=== PATIENT | female | born 1990 | race Caucasian/White ===

== ENCOUNTER 2021-12-27 10:47 | Outpatient (CLI) | payer BC | END 2021-12-27 10:48 | disposition home or self-care (01) | LOC: CSHLAB 10:47 | PROVIDERS: ATTEND Student in an Organized Health Care Education/Training Program | DX: Z20.822 Contact with and (suspected) exposure to COVID-19 (principal) | CPT/HCPCS: U0003; U0005 ==

== ENCOUNTER 2021-12-31 05:23 | Inpatient (IN) | payer BC ==
[2021-12-31] MEDS ORDERED: Ondansetron PF 4 MG/2 ML Vial IVP PRN ×3 (05:33→11:07)
[2021-12-31] MEDS ORDERED: Bicitra 30 ML UDCUP PO PRN (05:33)
[2021-12-31] MEDS ORDERED: Promethazine HCl 25 MG/ML VIAL IM PRN ×2 (05:33→07:05)
[2021-12-31] MEDS ORDERED: hydrALAZINE 20 MG/ML VIAL SLOW IVP PRN ×2 (05:33→11:07)
[2021-12-31] MEDS ORDERED: Famotidine/PF 20 mg/2ml Vial SLOW IVP PRN (05:33)
[2021-12-31 05:35] VITALS: BMI 37.9
[2021-12-31] MEDS ORDERED: CEFAZOLIN 2 GM in Sodium Chloride 0.9% 100 ML IVPB SCH (05:45)
[2021-12-31] MEDS: Lactated Ringer's 1,000 ML IV SCH ×3 (06:15→10:45)
[2021-12-31 06:23] LABS: Hemoglobin 11.4 g/dL (12.0-15.5); Mean Corpuscular HGB CONC 33.5 g/dL (32.0-36.0); Mean Corpuscular Hemoglobin 27.5 pg (27.0-33.0); Mean Corpuscular Volume 82.1 fl (81.6-98.3); Mean Platelet Volume 10.5 fl (7.4-10.4); Platelet Count 193 10x3/uL (150-450); RBC Distribution Width 13.1 % (11.5-14.5); Red Blood Cell (RBC) Count 4.14 10x6/uL (3.90-5.03)
[2021-12-31] MEDS ORDERED: Meperidine HCl/PF 25 MG/ML VIAL SLOW IVP PRN (07:05)
[2021-12-31] MEDS ORDERED: Ondansetron HCl/PF 4 MG/2 ML Vial IVP PRN (07:05)
[2021-12-31] MEDS ORDERED: Naloxone HCl 0.4 mg/ml Vial IVP PRN ×2 (07:05)
[2021-12-31] MEDS ORDERED: Naloxone HCl 0.4 mg/ml Vial IV PRN (07:05)
[2021-12-31] MEDS ORDERED: Moisturizing Cream (Eucerin) 113 GM JAR TOP PRN (07:05)
[2021-12-31] MEDS ORDERED: diphenhydrAMINE 50 MG/ML VIAL IVP PRN (07:05)
[2021-12-31] MEDS ORDERED: Fentanyl 100 MCG/2 ML VIAL SLOW IVP PRN (07:05)
[2021-12-31] MEDS ORDERED: Promethazine HCl 25 MG SUPP PR PRN (07:05)
[2021-12-31] MEDS ORDERED: Ketorolac Tromethamine 30 MG/ML VIAL IVP PRN (07:05)
[2021-12-31] MEDS ORDERED: Communication Order-Pharmacy FS SCH (07:15)
[2021-12-31] MEDS ORDERED: Morphine PF 10 MG/10 ML VIAL ONE (07:15)
[2021-12-31] MEDS ORDERED: Ketorolac Tromethamine 30 MG/ML VIAL IVP SCH (07:15)
[2021-12-31] MEDS ORDERED: Fentanyl 100 MCG/2 ML VIAL ONE (07:15)
[2021-12-31] MEDS ORDERED: Ondansetron PF 4 MG/2 ML Vial ONE (07:16)
[2021-12-31] MEDS ORDERED: PHENYLEPHRINE-NS 100 MCG/ML 10 ML SYRINGE ONE ×4 (07:16→08:11)
[2021-12-31] MEDS ORDERED: Oxytocin 10 UNITS/ML VIAL ONE ×2 (07:16→08:08)
[2021-12-31] MEDS ORDERED: Dexamethasone 4 mg/ml Vial ONE (07:16)
[2021-12-31] MEDS ORDERED: Ketorolac Tromethamine 30 MG/ML VIAL ONE (07:37)
[2021-12-31] MEDS ORDERED: ePHEDrine Sulfate 50 MG/10 ML VIAL ONE (08:02)
[2021-12-31 08:10] LABS: Hep B Surf Ag Non-Reactive S/CO (NonReactive)
[2021-12-31 08:15] LABS: Syphilis Antibody Nonreactive (Nonreactive); Syphilis Antibody Index 0.03 S/CO (<1.00 Non-Reactive)
[2021-12-31] MEDS ORDERED: Phenylephrine 40 MG/NS 250 ML 250 ML ONE (08:19)
[2021-12-31 08:27] LABS: HBSAg Index 0.17 S/CO (0-0.99)
[2021-12-31] MEDS ORDERED: diphenhydrAMINE 25 MG CAP PO PRN (11:07)
[2021-12-31] MEDS ORDERED: Lanolin Ointment 7 GM TUBE TOP PRN (11:07)
[2021-12-31] MEDS ORDERED: Acetaminophen 325 MG TAB PO PRN (11:07)
[2021-12-31] MEDS ORDERED: Bisacodyl 10 MG SUPP PR PRN (11:07)
[2021-12-31] MEDS ORDERED: Boostrix 0.5 ML (Tdap) VIAL IM ONE (11:07)
[2021-12-31] MEDS ORDERED: Dextromethorphan Polistirex 30 MG/5 ML (89 ML BOTTLE) PO PRN ×2 (11:07→20:00)
[2021-12-31] MEDS ORDERED: Simethicone Chewable 80 MG TAB PO PRN (11:07)
[2021-12-31] MEDS ORDERED: Docusate 100 MG CAP PO SCH (11:15)
[2021-12-31] MEDS: Ibuprofen 800 MG TAB PO SCH ×2 (11:28→21:53)
[2021-12-31] MEDS ORDERED: Ferrous Sulfate 325 MG TAB PO SCH (11:30)
[2021-12-31] MEDS ORDERED: Prenatal Vitamin 1 TAB PO SCH (11:30)
[2021-12-31] MEDS ORDERED: HYDROcodone/Acetaminophen 5/325 mg Tablet PO PRN (19:30)
[2021-12-31] MEDS: Docusate 100 MG CAP PO SCH (21:53)
[2022-01-01 05:13] LABS: Hemoglobin 9.3 g/dL (12.0-15.5); Mean Corpuscular HGB CONC 34.1 g/dL (32.0-36.0); Mean Corpuscular Hemoglobin 27.6 pg (27.0-33.0); Platelet Count 161 10x3/uL (150-450); RBC Distribution Width 13.3 % (11.5-14.5); Red Blood Cell (RBC) Count 3.37 10x6/uL (3.90-5.03); White Blood Cell (WBC) Count 10.3 10x3/uL (3.5-10.5)
[2022-01-01] MEDS: Ibuprofen 800 MG TAB PO SCH ×3 (05:42→21:00)
[2022-01-01] MEDS: Ferrous Sulfate 325 MG TAB PO SCH ×3 (07:05→21:00)
[2022-01-01] MEDS: Docusate 100 MG CAP PO SCH ×2 (09:01→21:00)
[2022-01-01] MEDS: HYDROcodone/Acetaminophen 5/325 mg Tablet PO PRN ×3 (09:02→18:04)
[2022-01-01] MEDS: Prenatal Vitamin 1 TAB PO SCH (09:02)
[2022-01-02] MEDS: HYDROcodone/Acetaminophen 5/325 mg Tablet PO PRN (00:49)
[2022-01-02] MEDS: Ibuprofen 800 MG TAB PO SCH ×4 (00:52→07:37)
[2022-01-02 07:34] VITALS: BP 118/64; TEMP 98.3
[2022-01-02] MEDS: Prenatal Vitamin 1 TAB PO SCH (08:18)
[2022-01-02] MEDS: Ferrous Sulfate 325 MG TAB PO SCH (08:18)
[2022-01-02] MEDS: Docusate 100 MG CAP PO SCH (08:18)
== END 2022-01-02 13:30 | disposition home or self-care (01) | DRG 787 ==
LOC: CSHLD 05:23 → CSHPP 11:05
PROVIDERS: ADMIT Student in an Organized Health Care Education/Training Program; ATTEND Student in an Organized Health Care Education/Training Program
PROC: 10D00Z1 Extraction of Products of Conception, Low, Open Approach (ICD-10-PCS; principal; 2021-12-31)
PROC: 3E0334Z Introduction of Serum, Toxoid and Vaccine into Peripheral Vein, Percutaneous Approach (ICD-10-PCS; 2021-12-31)
DX: O34.211 Maternal care for low transverse scar from previous cesarean delivery (principal); D62 Acute posthemorrhagic anemia; Z20.822 Contact with and (suspected) exposure to COVID-19; Z3A.37 37 weeks gestation of pregnancy; Z37.0 Single live birth; Z88.1 Allergy status to other antibiotic agents; O26.893 Other specified pregnancy related conditions, third trimester; Z67.41 Type O blood, Rh negative; N73.6 Female pelvic peritoneal adhesions (postinfective); O99.892 Other specified diseases and conditions complicating childbirth; O90.81 Anemia of the puerperium
CPT/HCPCS: 36415; 51702; 85027; 85461; 86780; 86850; 86870; 86900; 86901; 87340; 90384; 96372; J0690; J1100; J1885; J2274; J2405; J2590; J3010; J3490; J7120; S0028

== ENCOUNTER 2025-06-06 12:10 | Inpatient (IN) | payer BC ==
[2025-06-03 15:47] LABS: Hematocrit 36.8 % (34.9-44.5); Hemoglobin 12.6 g/dL (12.0-15.5); Platelet Count 184 10x3/uL (150-450)
[2025-06-03 16:26] LABS: Syphilis Antibody Index 0.08 S/CO (<1.00 Non-Reactive)
[2025-06-03 16:27] LABS: Hep B Surf Ag Non-Reactive S/CO (NonReactive)
[2025-06-06] MEDS ORDERED: Ondansetron PF 4 MG/2 ML Vial IVP PRN ×4 (12:12→17:35)
[2025-06-06] MEDS ORDERED: Bicitra 30 ML UDCUP PO PRN (12:12)
[2025-06-06] MEDS ORDERED: Diphenoxylate HCl/Atropine Tablet PO PRN (12:12)
[2025-06-06] MEDS ORDERED: Famotidine/PF 20 mg/2ml Vial SLOW IVP PRN (12:12)
[2025-06-06] MEDS ORDERED: Methylergonovine 0.2 MG/ML VIAL IM PRN (12:12)
[2025-06-06] MEDS ORDERED: hydrALAZINE 20 MG/ML VIAL SLOW IVP PRN ×2 (12:12→17:35)
[2025-06-06] MEDS ORDERED: Carboprost 250 MCG/ML AMP IM PRN (12:12)
[2025-06-06] MEDS ORDERED: Oxytocin 30 units/NS 500 ML 500 ML IV SCH (12:15)
[2025-06-06 12:25] VITALS: BMI 38.7
[2025-06-06] MEDS ORDERED: HYDROmorphone 0.5 MG/0.5 ML SYRINGE SLOW IVP PRN (15:26)
[2025-06-06] MEDS ORDERED: diphenhydrAMINE 50 MG/ML VIAL IVP PRN (15:26)
[2025-06-06] MEDS ORDERED: Meperidine HCl/PF 25 MG (1 mL) VIAL SLOW IVP PRN (15:26)
[2025-06-06] MEDS ORDERED: Communication Order-Pharmacy FS SCH (15:30)
[2025-06-06] MEDS ORDERED: Ketorolac Tromethamine 30 MG (1 mL) VIAL IVP SCH (15:30)
[2025-06-06] MEDS ORDERED: Bisacodyl 10 MG SUPP PR PRN (17:35)
[2025-06-06] MEDS ORDERED: diphenhydrAMINE 25 MG CAP PO PRN (17:35)
[2025-06-06] MEDS ORDERED: Acetaminophen 325 MG TAB PO PRN (17:35)
[2025-06-06] MEDS ORDERED: Lanolin Ointment 7 GM TUBE TOP PRN (17:35)
[2025-06-06] MEDS: Ondansetron PF 4 MG/2 ML Vial ONE (17:54)
[2025-06-06] MEDS: Oxytocin 10 UNITS/ML VIAL ONE (17:54)
[2025-06-06] MEDS: Tranexamic Acid 1,000 MG/10 ML VIAL ONE (17:54)
[2025-06-06] MEDS: PHENYLEPHRINE-NS 100 MCG/ML 10 ML SYRINGE ONE (17:55)
[2025-06-06] MEDS: Ferrous Sulfate 325 MG TAB PO SCH (20:50)
[2025-06-06] MEDS: Ketorolac Tromethamine 30 MG (1 mL) VIAL IVP PRN (20:52)
[2025-06-07] MEDS ORDERED: HYDROcodone/Acetaminophen 5/325 mg Tablet PO PRN (03:31)
[2025-06-07 04:54] LABS: Hematocrit 29.6 % (34.9-44.5); Hemoglobin 9.7 g/dL (12.0-15.5); Mean Corpuscular Hemoglobin 27.9 pg (27.0-33.0); Mean Corpuscular Volume 85.1 fL (81.6-98.3); Platelet Count 128 10x3/uL (150-450); Red Blood Cell (RBC) Count 3.48 10x6/uL (3.90-5.03); White Blood Cell (WBC) Count 11.01 10x3/uL (3.5-10.5)
[2025-06-07] MEDS: HYDROcodone/Acetaminophen 5/325 mg Tablet PO PRN (16:55)
[2025-06-07] MEDS: Simethicone Chewable 80 MG TAB PO PRN (21:05)
[2025-06-07] MEDS: Ibuprofen 800 MG TAB PO SCH (21:05)
[2025-06-08 08:25] VITALS: BP 109/67; TEMP 98.4
== END 2025-06-08 12:45 | disposition home or self-care (01) | DRG 785 ==
LOC: CSHLD 12:10 → CSHPP 17:50
PROVIDERS: ADMIT Student in an Organized Health Care Education/Training Program; ATTEND Student in an Organized Health Care Education/Training Program
PROC: 10D00Z1 Extraction of Products of Conception, Low, Open Approach (ICD-10-PCS; principal; 2025-06-06)
PROC: 0UT70ZZ Resection of Bilateral Fallopian Tubes, Open Approach (ICD-10-PCS; 2025-06-06)
DX: O24.429 Gestational diabetes mellitus in childbirth, unspecified control (principal); O34.211 Maternal care for low transverse scar from previous cesarean delivery; Z37.0 Single live birth; Z3A.37 37 weeks gestation of pregnancy; Z79.899 Other long term (current) drug therapy; Z79.82 Long term (current) use of aspirin; Z88.1 Allergy status to other antibiotic agents
CPT/HCPCS: 36415; 51702; 85014; 85018; 85027; 85049; 85461; 86780; 86850; 86870; 86900; 86901; 87340; 88302; 90384; 96372; J1885; J2274; J2405; J2550; J2590